=== PATIENT | female | born 2005 | race Two or more races ===

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

== ENCOUNTER 2023-04-07 20:46 | Emergency (ER) | payer OTHER ==
[~2023-04-07] VITALS: Ht 152.4 cm; Wt 60.8 kg
[2023-04-08 00:28] LABS: HEMATOCRIT 39.2 % (36.0-45.00); HEMOGLOBIN 13.2 g/dL (12.0-15.00); MEAN CELL VOLUME 88.4 fL (80.00-100.00); MEAN CORPUSCULAR HEMOGLOBIN 29.8 pg (27.00-32.0); MEAN CORPUSCULAR HGB CONC 33.7 g/dl (32.0-36.0); PLATELET COUNT 285 K/uL (150-450); RED BLOOD COUNT 4.43 M/uL (4.00-6.00); RED CELL DISTRIBUTION WIDTH 13.9 % (11.5-14.5)
[2023-04-08 00:53] LABS: ALBUMIN 3.7 gm/dL (3.4-5.0); BILIRUBIN TOTAL 0.21 mg/dL (0.3-1.2); CALCIUM 9.3 mg/dL (8.5-10.1); CREATININE SERUM 0.6 mg/dL (0.55-1.02); GFR 127.45; POTASSIUM 4.07 mEq/L (3.5-5.1); TOTAL PROTEIN 7.7 gm/dL (6.4-8.2)
[2023-04-08] MEDS ORDERED: KETO10TA2 PO (06:52)
== END 2023-04-08 07:03 ==
LOC: ER 20:46 → EMR PED 20:51 → ER 20:51
PROVIDERS: Emergency Medicine
DX: R10.9 Unspecified abdominal pain (principal); N83.209 Unspecified ovarian cyst, unspecified side; Q51.3 Bicornate uterus

== ENCOUNTER 2023-10-12 12:07 | Emergency (ER) | payer OTHER ==
[~2023-10-12] VITALS: Ht 154.9 cm; Wt 54.4 kg
[~2023-10-12 12:07] MED LIST: KETO10TA2 PO
[2023-10-12] MEDS ORDERED: DEXTROSE 5 %-0.45 % SOD CHLORD 1,000 ML IV SCH (13:15)
[2023-10-12] MEDS ORDERED: FAMOtidine 10 MG/ML (4ML VIAL) IV ONE (13:15)
[2023-10-12] MEDS ORDERED: ONDANSETRON HCL 2 MG/ML VIAL IV ONE (13:15)
[2023-10-12] MEDS ORDERED: RINGERS SOLUTION,LACTATED 1,000 ML IV ONE (13:15)
[2023-10-12 14:02] LABS: HEMATOCRIT 40.3 % (36.0-45.00); HEMOGLOBIN 13.7 g/dL (12.0-15.00); MEAN CELL VOLUME 86.9 fL (80.00-100.00); MEAN CORPUSCULAR HEMOGLOBIN 29.6 pg (27.00-32.0); MEAN CORPUSCULAR HGB CONC 34.1 g/dl (32.0-36.0); PLATELET COUNT 284 K/uL (150-450); RED BLOOD COUNT 4.64 M/uL (4.00-6.00); RED CELL DISTRIBUTION WIDTH 13.3 % (11.5-14.5)
[2023-10-12 14:33] LABS: ALBUMIN 3.8 gm/dL (3.4-5.0); BILIRUBIN TOTAL 0.48 mg/dL (0.3-1.2); CREATININE SERUM 0.57 mg/dL (0.55-1.02); GFR 135.22; GLOBULINA 3.6 G/DL (2.4-3.5); POTASSIUM 3.73 mEq/L (3.5-5.1); TOTAL PROTEIN 7.4 gm/dL (6.4-8.2)
[2023-10-12 17:55] LABS: URINE APPEARANCE Cloudy; URINE BILIRRUBIN Negative (NEGATIVE); URINE BLOOD Negative; URINE COLOR Yellow; URINE GLUCOSE Negative (NEGATIVE); URINE LEUKOCYTE Negative; URINE NITRATE Positive; URINE PROTEIN Negative (NEGATIVE); URINE UROBILINOGEN 0.2 E.U./dl
[2023-10-12 17:59] LABS: URINE EPITHELIAL CELLS 31.8 uL (0.0-38.8); URINE RBC 5.3 uL (0.0-20.8)
[2023-10-12 18:08] LABS: URINE BACTERIA > 9821.2 uL (0.0-1933)
[2023-10-12] MEDS ORDERED: CEFTRIAXONE SODIUM 2,000 MG VIAL IV ONE (18:30)
[2023-10-12] MEDS ORDERED: PEPCID AC20 MG PO (19:40)
[2023-10-12] MEDS ORDERED: CEFPROZIL500 MG PO (19:40)
[2023-10-12] MEDS ORDERED: ZOFRAN8 MG PO (19:40)
[2023-10-12] MEDS ORDERED: INTESTINEX680 M1 PO (19:40)
== END 2023-10-12 19:56 | disposition home or self-care (01) ==
LOC: ER 12:07 → EMR PED 12:07
PROVIDERS: Emergency Medicine Pediatric Emergency Medicine
DX: N39.0 Urinary tract infection, site not specified (principal); R11.10 Vomiting, unspecified; R07.9 Chest pain, unspecified; E86.0 Dehydration; F90.8 Attention-deficit hyperactivity disorder, other type; Z20.822 Contact with and (suspected) exposure to COVID-19

== ENCOUNTER → 2023-10-18 | Emergency (ER) | payer OTHER ==
[~2023-10-18] VITALS: Ht 154.9 cm; Wt 54.4 kg
[~2023-10-18] MED LIST changes: +CEFPROZIL500 MG PO; +INTESTINEX680 M1 PO; +KETOROLAC TROMETHAMINE 60 MG VIAL IM STA; +METHYLPREDNISOLONE SOD SUCC 40 MG VIAL IM STA; +PEPCID AC20 MG PO; +ZOFRAN8 MG PO
== END | disposition home or self-care (01) ==
LOC: ER 11:17 → EMR PED 11:30
DX: S10.93XA Contusion of unspecified part of neck, initial encounter (principal); V49.9XXA Car occupant (driver) (passenger) injured in unspecified traffic accident, initial encounter; Y93.9 Activity, unspecified; Y92.413 State road as the place of occurrence of the external cause; Y99.9 Unspecified external cause status; M62.838 Other muscle spasm

== ENCOUNTER 2023-10-29 20:22 | Emergency (ER) | payer OTHER ==
[~2023-10-29] VITALS: Ht 154.9 cm; Wt 54.4 kg
[~2023-10-29 20:22] MED LIST changes: -KETOROLAC TROMETHAMINE 60 MG VIAL IM STA; -METHYLPREDNISOLONE SOD SUCC 40 MG VIAL IM STA
[2023-10-29] MEDS ORDERED: ONDANSETRON HCL 2 MG/ML VIAL IV SCH (21:15)
[2023-10-29] MEDS ORDERED: 0.9 % SODIUM CHLORIDE 1,000 ML IV SCH (21:15)
[2023-10-29] MEDS ORDERED: DEXTROSE 5 % AND 0.9 % NACL 1,000 ML IV SCH (21:15)
[2023-10-29] MEDS ORDERED: FAMOtidine 10 MG/ML (4ML VIAL) IV SCH (21:15)
[2023-10-29 21:41] LABS: HEMATOCRIT 41.9 % (36.0-45.00); HEMOGLOBIN 14.4 g/dL (12.0-15.00); MEAN CELL VOLUME 86.7 fL (80.00-100.00); MEAN CORPUSCULAR HEMOGLOBIN 29.7 pg (27.00-32.0); MEAN CORPUSCULAR HGB CONC 34.3 g/dl (32.0-36.0); PLATELET COUNT 294 K/uL (150-450); RED BLOOD COUNT 4.84 M/uL (4.00-6.00); RED CELL DISTRIBUTION WIDTH 13.5 % (11.5-14.5)
[2023-10-29 21:44] LABS: PH,URINE 6.5 (5.0-8.0); URINE APPEARANCE Clear; URINE BILIRRUBIN Negative (NEGATIVE); URINE BLOOD Small; URINE COLOR Yellow; URINE GLUCOSE Negative (NEGATIVE); URINE LEUKOCYTE Negative; URINE NITRATE Negative; URINE PROTEIN Negative (NEGATIVE); URINE UROBILINOGEN 0.2 E.U./dl
[2023-10-29 21:45] LABS: URINE BACTERIA 1630.1 uL (0.0-1933); URINE EPITHELIAL CELLS 27.6 uL (0.0-38.8); URINE RBC 5.6 uL (0.0-20.8); URINE WBC 11.1 uL (0.0-23.2)
[2023-10-29 22:03] LABS: ALBUMIN 4.4 gm/dL (3.4-5.0); BILIRUBIN TOTAL 0.27 mg/dL (0.3-1.2); CREATININE SERUM 0.74 mg/dL (0.55-1.02); GFR 100.05; GLOBULINA 4.1 G/DL (2.4-3.5); POTASSIUM 3.98 mEq/L (3.5-5.1); TOTAL PROTEIN 8.5 gm/dL (6.4-8.2)
== END 2023-10-30 03:23 | disposition home or self-care (01) ==
LOC: ER 20:22 → EMR PED 20:26
PROVIDERS: Emergency Medicine Pediatric Emergency Medicine
DX: K29.70 Gastritis, unspecified, without bleeding (principal); E86.0 Dehydration; R11.2 Nausea with vomiting, unspecified; K30 Functional dyspepsia

== ENCOUNTER 2024-03-31 10:16 | Emergency (ER) | payer OTHER ==
[~2024-03-31] VITALS: Ht 152.4 cm; Wt 59.4 kg
[~2024-03-31 10:16] MED LIST changes: +FLUCONAZOLE150 MG PO
[2024-03-31] MEDS ORDERED: 0.9 % SODIUM CHLORIDE 1,000 ML IV SCH (11:15)
[2024-03-31] MEDS ORDERED: LORazepam 1 MG TABLET PO ONE (11:15)
[2024-03-31 11:49] LABS: HEMATOCRIT 38.9 % (36.0-45.00); HEMOGLOBIN 13.8 g/dL (12.0-15.00); MEAN CELL VOLUME 86.2 fL (80.00-100.00); MEAN CORPUSCULAR HEMOGLOBIN 30.5 pg (27.00-32.0); MEAN CORPUSCULAR HGB CONC 35.4 g/dl (32.0-36.0); PLATELET COUNT 304 K/uL (150-450); RED BLOOD COUNT 4.52 M/uL (4.00-6.00); RED CELL DISTRIBUTION WIDTH 13.6 % (11.5-14.5)
[2024-03-31 13:07] LABS: ALBUMIN 4.3 gm/dL (3.4-5.0); BILIRUBIN TOTAL 0.39 mg/dL (0.3-1.2); CREATININE SERUM 0.66 mg/dL (0.55-1.02); GFR 113.05; POTASSIUM 3.78 mEq/L (3.5-5.1); TOTAL PROTEIN 8.3 gm/dL (6.4-8.2); TSH 0.568 uIU/mL (0.358-3.74)
== END 2024-03-31 13:40 | disposition home or self-care (01) ==
LOC: ER 10:17 → EMR PED 10:34 → ER 10:34
PROVIDERS: Emergency Medicine
DX: R00.2 Palpitations (principal)

== ENCOUNTER → 2025-06-05 | Emergency (ER) | payer OTHER ==
[~2025-06-05] VITALS: Ht 154.9 cm; Wt 59.0 kg
[2025-06-05 18:33] LABS: BASO % 0.2 % (0.1-1.2); EOS # 0.13 (0.04-0.54); EOS % 1.4 % (0.7-7.0); LYMPH # 3.06 (1.18-3.74); LYMPH % 32.6 % (19.3-53.1); MEAN PLATELET VOLUME 9.90 fl (9.4-12.4); MONO # 0.45 (0.24-0.82); MONO % 4.8 % (4.7-12.5); NEUT # 5.70 (1.56-6.13); NEUT % 60.7 % (34.0-71.1); RED CELL DISTRIBUTION WIDTH 13.1 % (11.6-14.4)
[2025-06-05 19:36] LABS: BUN CREA RATIO 20.0 (7.0-25.0); CREATININE SERUM 0.65 mg/dL (0.55-1.02); GFR 113.98; GLUCOSE FASTING 98.0 mg/dL (65-100); GLUCOSE RANDOM 98.0 mg/dL (65-100); OSMOLALITY SERUM 279.0 MOSM/KG (275-295); TSH 1.11 uIU/mL (0.358-3.74)
== END | disposition home or self-care (01) ==
LOC: ER 15:25
PROVIDERS: Behavior Technician
DX: G50.0 Trigeminal neuralgia (principal); H02.402 Unspecified ptosis of left eyelid; H49.00 Third [oculomotor] nerve palsy, unspecified eye